=== PATIENT | female | born 1925 | race Caucasian/White ===

== ENCOUNTER 2016-12-11 08:47 | Day surgery (SDC) | payer OTHER ==
[2016-12-07 13:26] VITALS: BMI 31.6
--- NOTE | 2016-12-11 06:27 | HP ---
History & Physical Update - History History: No Change - Physical Physical: No Change - Assessment Assessment: No Change - Plan Plan: No Change
[~2016-12-11 08:47] MED LIST: CHONDROITIN SU A/HYALUR SOD 1 KIT IO ONE; CYCLOPENTOLATE HCL 1% OPHTH SOLN 2 ML BOTTLE OP SCH; MOXIFLOXACIN HCL 0.5% OPHTHALMIC 3 ML BOTTLE OP SCH; PHENYLEPHRINE 2.5% OPHTH SOLN 15 ML BOTTLE OP SCH; TOBRAMYCIN/DEXAMETHASONE OPHTH. OINTMENT 1 TUBE TP ONE; TROPICAMIDE 1% OPHTH SOLN 15 ML BOTTLE OP SCH
[2016-12-11 09:09] VITALS: TEMP 97.8
[2016-12-11] MEDS ORDERED: MOXIFLOXACIN HCL 0.5% OPHTHALMIC 3 ML BOTTLE ONE (09:14)
[2016-12-11] MEDS ORDERED: CYCLOPENTOLATE HCL 1% OPHTH SOLN 2 ML BOTTLE ONE (09:14)
[2016-12-11] MEDS ORDERED: TROPICAMIDE 1% OPHTH SOLN 15 ML BOTTLE ONE (09:14)
[2016-12-11] MEDS ORDERED: PHENYLEPHRINE 2.5% OPHTH SOLN 15 ML BOTTLE ONE (09:14)
[2016-12-11] MEDS ORDERED: MIDAZOLAM HCL 2 MG/2 ML SINGLE DOSE VIAL ONE (09:50)
[2016-12-11] MEDS ORDERED: LIDOCAINE HCL/PF 2% SDV 5ML VIAL ONE (10:08)
[2016-12-11] MEDS ORDERED: TETRACAINE 0.5% HCL 0.6ML DROPPER.BOTTLE TP ONE (10:20)
[2016-12-11] MEDS ORDERED: LIDOCAINE HCL/PF 2% SDV 5ML VIAL PNB ONE (10:24)
[2016-12-11] MEDS ORDERED: BUPIVACAINE HCL/PF 0.75% 10 ML VIAL RB ONE (10:24)
[2016-12-11] MEDS ORDERED: TOBRAMYCIN/DEXAMETHASONE OPHTH. OINTMENT 1 TUBE ONE (10:28)
[2016-12-11] MEDS ORDERED: ESMOLOL HCL 10 ML ONE (10:32)
[2016-12-11] MEDS ORDERED: CHONDROITIN SU A/HYALUR SOD 1 KIT IO ONE ×2 (10:38→10:50)
[2016-12-11] MEDS ORDERED: TOBRAMYCIN/DEXAMETHASONE OPHTH. OINTMENT 1 TUBE TP ONE (11:00)
[2016-12-11 14:05] VITALS: BP 125/98; PULSE 118
--- NOTE | 2016-12-11 14:35 | OP ---
DATE OF OPERATION: 12/11/2016 SURGEON: Timmy Rojas MD PREOPERATIVE DIAGNOSIS: Cataract, left eye. OPERATION: Phacoemulsification and intraocular lens implantation, left eye. POSTOPERATIVE DIAGNOSIS: Cataract, left eye. ANESTHESIA: Local with intravenous sedation. COMPLICATIONS: None. BLOOD LOSS: None. SPECIMEN: None. BRIEF HISTORY: The patient is an 89-year-old woman with a past ocular history significant for macular degeneration, who presents with decreased vision in the left eye down to counting fingers due to a 2+ nuclear sclerotic lens. After the risks, benefits, and alternatives to cataract surgery were discussed with the patient including the limited visual outcome due to her macular degeneration, patient consented to surgery. DESCRIPTION OF PROCEDURE: The patient was brought to the operating room and administered a retrobulbar block after receiving intravenous sedation. She was then prepped and draped in the usual sterile fashion. An eyelid speculum was inserted in the left eye. A paracentesis was made and the anterior chamber was inflated with Viscoat. A groove was made in the superotemporal clear cornea which was tunneled forward with a crescent blade. The anterior chamber was entered with a 2.75 keratome. The cystotome was used to make an incision in the center of the capsule, and a continuous curvilinear capsulorrhexis was created. The lens was hydrodissected until it was found to rotate freely within the capsular bag. Phacoemulsification was then used to remove the lens in its entirety. Irrigation and aspiration were used to remove residual cortical material. The anterior chamber and capsular bag were reinflated with Provisc, and a 23.0-diopter SN60WF AcrySof intraocular lens was injected into the capsular bag using the [place] injector. The lens was dialed into place using a [place] hook. Irrigation and aspiration were used to remove residual Viscoelastic. The wound was stromally hydrated until it was found to be watertight and the eye was at an appropriate pressure. There was significant chemosis throughout the surgery, and 2 cuts were made in the conjunctiva in order for the fluid to drain. The eyelid speculum was removed from the eye, and TobraDex ointment and a patch and shield were placed over the left eye. The patient was transferred to the recovery room in stable condition and will follow up tomorrow. TIMMY ROJAS M.D. [id number] MTDD
--- NOTE | 2016-12-11 16:15 | EKG ---
Test Reason : Blood Pressure : / mmHG Vent. Rate : 126 BPM Atrial Rate : 126 BPM P-R Int : 172 ms QRS Dur : 084 ms QT Int : 318 ms P-R-T Axes : -15 -25 011 degrees QTc Int : 460 ms SINUS TACHYCARDIA WITH OCCASIONAL PREMATURE VENTRICULAR COMPLEXES MINIMAL VOLTAGE CRITERIA FOR LVH, MAY BE NORMAL VARIANT BORDERLINE ECG NO PREVIOUS ECGS AVAILABLE Confirmed by FERYN LARSON MD ([id number]) on 12/11/2016 4:14:59 PM Referred By: Timmy Guerrero Confirmed By:FERNY LARSON MD
== END 2016-12-11 14:11 | disposition home or self-care (01) ==
LOC: JASU-SURG 08:47
PROVIDERS: ATTEND Ophthalmology
PROC: 08RK3JZ Replacement of Left Lens with Synthetic Substitute, Percutaneous Approach (ICD-10-PCS; principal; 2016-12-11 10:00)
DX: H25.12 Age-related nuclear cataract, left eye (principal)
CPT/HCPCS: 93005; 93010

== ENCOUNTER 2017-01-08 08:10 | Day surgery (SDC) | payer OTHER ==
[2017-01-07 09:28] VITALS: BMI 31.6
--- NOTE | 2017-01-08 06:19 | HP ---
History & Physical Update - History History: No Change - Physical Physical: No Change - Assessment Assessment: No Change - Plan Plan: No Change
[~2017-01-08 08:10] MED LIST changes: -CHONDROITIN SU A/HYALUR SOD 1 KIT IO ONE
[2017-01-08] MEDS: PHENYLEPHRINE 2.5% OPHTH SOLN 15 ML BOTTLE ONE ×3 (08:40→08:59)
[2017-01-08] MEDS: TROPICAMIDE 1% OPHTH SOLN 15 ML BOTTLE ONE ×3 (08:40→08:59)
[2017-01-08] MEDS: MOXIFLOXACIN HCL 0.5% OPHTHALMIC 3 ML BOTTLE ONE ×3 (08:40→08:59)
[2017-01-08] MEDS: CYCLOPENTOLATE HCL 1% OPHTH SOLN 2 ML BOTTLE ONE ×3 (08:40→08:59)
[2017-01-08 08:41] VITALS: TEMP 97.4
[2017-01-08] MEDS ORDERED: LIDOCAINE HCL/PF 2% SDV 5ML VIAL INF ONE (09:35)
[2017-01-08] MEDS ORDERED: BUPIVACAINE HCL/PF 0.75% 10 ML VIAL RB ONE (09:35)
[2017-01-08] MEDS ORDERED: TETRACAINE 0.5% HCL 0.6ML DROPPER.BOTTLE TP ONE (09:38)
[2017-01-08] MEDS ORDERED: POVIDONE-IODINE 5% OPHTHALMIC PREP 30 ML SOLUTION OD ONE (09:40)
[2017-01-08] MEDS ORDERED: BSS (NA/CA/MG/K) BALANCED SALT SOLUTION OPHTH SOLN 15 ML BOTTLE IO ONE (09:46)
[2017-01-08] MEDS ORDERED: LIDOCAINE HCL 1% PRESERVATIVE FREE - 30ML VIAL IO ONE (09:46)
[2017-01-08] MEDS ORDERED: CHONDROITIN SU A/HYALUR SOD 1 KIT IO ONE (09:48)
[2017-01-08] MEDS ORDERED: TOBRAMYCIN/DEXAMETHASONE OPHTH. OINTMENT 1 TUBE TP ONE (10:09)
[2017-01-08 11:49] VITALS: BP 131/69; PULSE 81
--- NOTE | 2017-01-09 12:38 | OP ---
DATE OF OPERATION: 01/08/2017 PREOPERATIVE DIAGNOSIS: Cataract, right eye. OPERATION: Phacoemulsification and intraocular lens implantation, right eye. POSTOPERATIVE DIAGNOSIS: Cataract, right eye. ANESTHESIA: Local with intravenous sedation. COMPLICATIONS: None. BLOOD LOSS: None. SPECIMEN: None. BRIEF HISTORY: The patient is an 89-year-old woman with a past medical history of hypertension, who presented with decreased vision in the right eye down to 20/ 100 due to a 2+ nuclear sclerotic lens and posterior subcapsular cataract. After the risks, benefits and alternatives to cataract surgery were discussed with the patient, she consented to surgery for the right eye. The patient was brought to the operating room and administered retrobulbar block after receiving intravenous sedation. She was then prepped and draped in the usual sterile fashion and an eyelid speculum was inserted in the right eye. A paracentesis was made and the anterior chamber was inflated with nonpreserved lidocaine. This was followed by injection of Viscoat. A groove was made in the temporal clear cornea which was tunneled forward with a crescent blade. The anterior chamber was entered with a 2.75 keratome. The cystotome was used to make an incision in the center of the capsule and a continuous curvilinear capsulorrhexis was created. The lens was hydrodissected until it was found to rotate freely within the capsular bag. Phacoemulsification was then used to remove the lens in its entirety. Irrigation and aspiration was used to remove residual cortical material. The anterior chamber and capsular bag were reinflated with ProVisc and a 23.0 diopter SN60WF AcrySof intraocular lens was injected into the capsular bag using the [place] injector. The lens was dialed into place using a [place] hook. Irrigation and aspiration was used to remove residual viscoelastic. The wound was stromally hydrated until it was found to be watertight and the eye was at an appropriate pressure. The eyelid speculum was removed from the eye and TobraDex ointment and a patch and shield were placed over the right eye. The patient was transferred to the recovery room in stable condition and will follow up tomorrow. Leidy [id number] MTDD
== END 2017-01-08 11:30 | disposition home or self-care (01) ==
LOC: JASU-SURG 08:10
PROVIDERS: ATTEND Ophthalmology
PROC: 08RJ3JZ Replacement of Right Lens with Synthetic Substitute, Percutaneous Approach (ICD-10-PCS; principal; 2017-01-08 09:00)
DX: H25.11 Age-related nuclear cataract, right eye (principal)